=== PATIENT | female | born 1975 | race American Indian/Alaskan Native ===

== ENCOUNTER 2018-07-04 14:57 | Emergency (ER) | payer OTHER ==
--- NOTE | 2018-07-04 16:26 | Emergency Department Report ---
Blank Doc - Documentation Documentation: 43 y o female presents with cc of back pain x 3 days denies injury, fall or trauma ambulates well ua, ACC evaluate
[2018-07-04] MEDS ORDERED: TORADOL IM ONE (19:20)
[2018-07-04 19:49] LABS: Bacteria,Urine 1+ /HPF (Negative); Bilirubin,Urine NEG (Negative); Blood,Urine MOD (Negative); Color,Urine Amber (Yellow); Mucus,Urine 3+ /HPF
--- NOTE | 2018-07-04 20:00 | Emergency Department Report ---
ED Back Pain/Injury HPI - General Chief Complaint: Back Pain/Injury Stated Complaint: SHOOTING BACK PAIN Time Seen by Provider: 07/04/18 16:21 Source: patient Limitations: No Limitations - History of Present Illness Initial Comments: pt is s 43 y/o aaf who presents for rigiht side low back pain described as spasm x 3 days witch secondary complaint of urinary urgency and stinging there is no fever no chilll no n/v no hematuria no vaginal discharge Complaint: back pain Onset/Timin -: days(s) Similar Symptoms Previously: Yes Place: home Radiation: none Severity: moderate Severity scale (0 -10): 4 Quality: other (spasm) Consistency: intermittent Improves With: none Worsens With: other (voiding) - Related Data Previous Rx's Medication Instructions Recorded Last Taken Type Acetaminophen [Acetaminophen TAB] 650 mg PO Q4H PRN tablet 04/07/18 Unknown Rx Apixaban [Eliquis] 5 mg PO BID #60 tablet 04/07/18 Unknown Rx Apixaban [Eliquis] 10 mg PO BID #14 tablet 04/07/18 Unknown Rx Aspirin [Aspirin BABY CHEW TAB] 81 mg PO QDAY #30 tab.chew 04/07/18 Unknown Rx AtorvaSTATin [Lipitor] 40 mg PO QHS #30 tablet 04/07/18 Unknown Rx Benztropine [Cogentin] 0.5 mg PO DAILY #30 tablet 04/07/18 Unknown Rx HYDROcodone/APAP 5-325 [[place] 1 each PO Q4H PRN #10 tablet 04/07/18 Unknown Rx 5-325 mg TAB] Losartan [Cozaar] 100 mg PO QDAY #30 tablet 04/07/18 Unknown Rx Metoprolol Xl [Metoprolol 100 mg PO QDAY #30 tablet 04/07/18 Unknown Rx SUCCINATE ER TAB] Nicotine [Habitrol] 14 mg TD QDAY #30 patch 04/07/18 Unknown Rx Zolpidem [Ambien] 5 mg PO QHS PRN #10 tablet 04/07/18 Unknown Rx metFORMIN 500 mg PO DAILY #30 04/07/18 Unknown Rx risperiDONE [RisperDAL] 2 mg PO DAILY #30 tablet 04/07/18 Unknown Rx traZODone [Desyrel] 50 mg PO QHS #30 tablet 04/07/18 Unknown Rx Nitrofurantoin Monohyd/M-Cryst 100 mg PO BID 7 Days #14 capsule 07/04/18 Unknown Rx [Macrobid 100 mg Capsule] Allergies Allergy/AdvReac Type Severity Reaction Status Date / Time No Known Allergies Allergy Verified 07/04/18 16:20 ED Review of Systems ROS: Stated complaint: SHOOTING BACK PAIN Other details as noted in HPI Constitutional: denies: chills, fever Eyes: denies: eye pain, eye discharge, vision change ENT: denies: ear pain, throat pain Respiratory: denies: cough, shortness of breath, wheezing Cardiovascular: denies: chest pain, palpitations Endocrine: no symptoms reported Gastrointestinal: denies: abdominal pain, nausea, diarrhea Genitourinary: urgency, dysuria, frequency. denies: hematuria, discharge, abnormal menses, dyspareunia Musculoskeletal: denies: back pain, joint swelling, arthralgia Skin: denies: rash, lesions Neurological: denies: headache, weakness, paresthesias Psychiatric: denies: anxiety, depression Hematological/Lymphatic: denies: easy bleeding, easy bruising ED Past Medical Hx - Past Medical History Hx Hypertension: Yes Hx Heart Attack/AMI: Yes Hx Psychiatric Treatment: Yes Hx COPD: No (Patient states that she has not been dx with COPD) Additional medical history: Schizophrenia, CAD - Surgical History Additional Surgical History: Coronary stents - Social History Smoking Status: Current Every Day Smoker Substance Use Type: Alcohol - Medications Home Medications: Home Medications Medication Instructions Recorded Confirmed Last Taken Type Acetaminophen [Acetaminophen TAB] 650 mg PO Q4H PRN tablet 04/07/18 Unknown Rx Apixaban [Eliquis] 5 mg PO BID #60 tablet 04/07/18 Unknown Rx Apixaban [Eliquis] 10 mg PO BID #14 tablet 04/07/18 Unknown Rx Aspirin [Aspirin BABY CHEW TAB] 81 mg PO QDAY #30 tab.chew 04/07/18 Unknown Rx AtorvaSTATin [Lipitor] 40 mg PO QHS #30 tablet 04/07/18 Unknown Rx Benztropine [Cogentin] 0.5 mg PO DAILY #30 tablet 04/07/18 Unknown Rx HYDROcodone/APAP 5-325 [[place] 1 each PO Q4H PRN #10 tablet 04/07/18 Unknown Rx 5-325 mg TAB] Losartan [Cozaar] 100 mg PO QDAY #30 tablet 04/07/18 Unknown Rx Metoprolol Xl [Metoprolol 100 mg PO QDAY #30 tablet 04/07/18 Unknown Rx SUCCINATE ER TAB] Nicotine [Habitrol] 14 mg TD QDAY #30 patch 04/07/18 Unknown Rx Zolpidem [Ambien] 5 mg PO QHS PRN #10 tablet 04/07/18 Unknown Rx metFORMIN 500 mg PO DAILY #30 04/07/18 Unknown Rx risperiDONE [RisperDAL] 2 mg PO DAILY #30 tablet 04/07/18 Unknown Rx traZODone [Desyrel] 50 mg PO QHS #30 tablet 04/07/18 Unknown Rx Nitrofurantoin Monohyd/M-Cryst 100 mg PO BID 7 Days #14 capsule 07/04/18 Unknown Rx [Macrobid 100 mg Capsule] ED Physical Exam - General Limitations: No Limitations General appearance: alert, in no apparent distress - Head Head exam: Present: atraumatic, normocephalic - Eye Eye exam: Present: normal appearance - ENT ENT exam: Present: mucous membranes moist - Neck Neck exam: Present: normal inspection - Respiratory Respiratory exam: Present: normal lung sounds bilaterally. Absent: respiratory distress - Cardiovascular Cardiovascular Exam: Present: regular rate, normal rhythm, normal heart sounds. Absent: systolic murmur, diastolic murmur, rubs, gallop - GI/Abdominal GI/Abdominal exam: Present: soft, normal bowel sounds. Absent: distended, tenderness, rebound, rigid, bruit, hernia - Rectal Rectal exam: Present: deferred - Extremities Exam Extremities exam: Present: normal inspection, full ROM, normal capillary refill. Absent: tenderness - Back Exam Back exam: Present: normal inspection, full ROM. Absent: tenderness, CVA tenderness (R), CVA tenderness (L), muscle spasm, paraspinal tenderness, rash noted - Neurological Exam Neurological exam: Present: alert, oriented X3, CN II-XII intact, normal gait, reflexes normal - Psychiatric Psychiatric exam: Present: normal affect, normal mood - Skin Skin exam: Present: warm, dry, intact, normal color. Absent: rash ED Course Vital Signs 07/04/18 07/04/18 16:20 19:27 Temperature 97.8 F Pulse Rate 111 H Respiratory 20 18 Rate Blood Pressure 164/105 O2 Sat by Pulse 99 Oximetry ED Medical Decision Making - Lab Data Labs 07/04/18 19:20 Urine Color Veronica Urine Turbidity Slightly-cloudy Urine pH 6.0 Ur Specific [place] 1.027 Urine Protein 30 mg/dl Urine Glucose (UA) Neg Urine Ketones Neg Urine Blood Mod Urine Nitrite Neg Urine Bilirubin Neg Urine Urobilinogen 2.0 Ur Leukocyte Esterase Neg Urine WBC (Auto) 3.0 Urine RBC (Auto) 2.0 U Epithel Cells (Auto) 5.0 Urine Bacteria (Auto) 1+ Urine Mucus 3+ - Medical Decision Making th is a Uti plan: macrobid follow up with pcp in 2-3 days , pt is currently tolerating po intake without nuasea or vomitng, will self hydrate at home pt has not take bp medicaitons today will take upon arrival to [facility], [place], there is no headacch no dizziness no lightheadedness no cp no sob, pt verbalized ageement and understanding of same. Critical care attestation.: If time is entered above; I have spent that time in minutes in the direct care of this critically ill patient, excluding procedure time. ED Disposition Clinical Impression: UTI (urinary tract infection) Qualifiers: Urinary tract infection type: acute cystitis Hematuria presence: without hematuria Qualified Code(s): N30.00 - Acute cystitis without hematuria Disposition: DC-01 TO HOME OR SELFCARE Is pt being admited?: No Does the pt Need Aspirin: No Condition: Stable Instructions: Urinary Tract Infection in Women (ED) Prescriptions: Nitrofurantoin Monohyd/M-Cryst [Macrobid 100 mg Capsule] 100 mg PO BID 7 Days #14 capsule Referrals: DEVI HARRIS MD [Primary Care Provider] - 3-5 Days Forms: Work/School Release Form(ED) Time of Disposition: 20:03
[2018-07-04 20:09] VITALS: BP 167/99
== END 2018-07-04 20:09 | disposition home or self-care (01) ==
LOC: ED 14:57
DX: N30.00 Acute cystitis without hematuria (principal); I10 Essential (primary) hypertension; I25.2 Old myocardial infarction; F20.9 Schizophrenia, unspecified; I25.10 Atherosclerotic heart disease of native coronary artery without angina pectoris; F17.200 Nicotine dependence, unspecified, uncomplicated
CPT/HCPCS: 81001; 96372; 99283; J1885

== ENCOUNTER 2018-08-29 13:45 | Inpatient (IN) | payer SELFPAY ==
[2018-08-29 15:12] LABS: Basophils % (Auto) 0.7 % (0.0-1.8); Eosinophils # (Auto) 0.1 K/mm3 (0.0-0.4); Eosinophils % (Auto) 2.1 % (0.0-4.3); Hematocrit 35.5 % (30.3-42.9); Hemoglobin 11.2 gm/dl (10.1-14.3); Lymphocytes % (Auto) 17.4 % (13.4-35.0); Mean Corpuscular HGB Conc 32 % (30-34); Mean Corpuscular Volume 88 fl (79-97); Monocytes # (Auto) 0.7 K/mm3 (0.0-0.8); Monocytes % (Auto) 11.1 % (0.0-7.3); Platelet Count 262 K/mm3 (140-440); Red Blood Count 4.04 M/mm3 (3.65-5.03)
[2018-08-29 15:19] LABS: INR 0.95 (0.87-1.13)
[2018-08-29 15:20] LABS: Partial Thromboplastin Time 27.1 Sec. (24.2-36.6)
[2018-08-29 15:27] LABS: Red Cell Distribution Width 23.5 % (13.2-15.2)
[2018-08-29 15:30] LABS: Alanine Aminotransferase 61 units/L (7-56); Albumin 3.4 g/dL (3.9-5); BUN/Creatinine Ratio 7; Blood Urea Nitrogen 4 mg/dL (7-17); Calcium 8.1 mg/dL (8.4-10.2); Hemolysis Index 0
[2018-08-29] MEDS ORDERED: HEPARIN 10,000 UNITS/10 ML IV ONE ×2 (18:02)
--- NOTE | 2018-08-29 18:12 | Consultation ---
History of Present Illness - Reason for Consult Consult date: 08/29/18 ischemic right leg Requesting physician: ANALIA ROE - History of Present Illness Patient known to our service. SP aortoiliac thrombectomy in Mar 2018. Ran out of Eliquis in April and stopped taking it. Hx of severe aortic disease. Now has right foot pain for 4 days. CO pain at forefoot and some numbness in toes. Continues to smoke. Past History Past Surgical History: Other (aortic thrombectomy) Medications and Allergies Allergies Allergy/AdvReac Type Severity Reaction Status Date / Time No Known Allergies Allergy Verified 07/04/18 16:20 Home Medications Medication Instructions Recorded Confirmed Last Taken Type Aspirin [Aspirin BABY CHEW TAB] 81 mg PO QDAY #30 tab.chew 04/07/18 08/29/18 Unknown Rx AtorvaSTATin [Lipitor] 40 mg PO QHS #30 tablet 04/07/18 08/29/18 Unknown Rx Benztropine [Cogentin] 0.5 mg PO DAILY #30 tablet 04/07/18 08/29/18 Unknown Rx HYDROcodone/APAP 5-325 [[place] 1 each PO Q4H PRN #10 tablet 04/07/18 08/29/18 Unknown Rx 5-325 mg TAB] Losartan [Cozaar] 100 mg PO QDAY #30 tablet 04/07/18 08/29/18 Unknown Rx Metoprolol Xl [Metoprolol 100 mg PO QDAY #30 tablet 04/07/18 08/29/18 Unknown Rx SUCCINATE ER TAB] Nicotine [Habitrol] 14 mg TD QDAY #30 patch 04/07/18 08/29/18 Unknown Rx Zolpidem [Ambien] 5 mg PO QHS PRN #10 tablet 04/07/18 08/29/18 Unknown Rx risperiDONE [RisperDAL] 2 mg PO DAILY #30 tablet 04/07/18 08/29/18 Unknown Rx traZODone [Desyrel] 50 mg PO QHS #30 tablet 04/07/18 08/29/18 Unknown Rx Exam - Constitutional Vitals: Temp Pulse Resp BP Pulse Ox 117 H 18 136/72 96 08/29/18 17:01 08/29/18 17:01 08/29/18 15:01 08/29/18 17:01 General appearance: Present: mild distress - EENT Eyes: Present: PERRL ENT: hearing intact, clear oral mucosa - Neck Neck: Present: supple, normal ROM - Respiratory Respiratory effort: normal - Cardiovascular Heart Sounds: Present: S1 & S2. Absent: rub, click - Extremities Extremity abnormal: other (left leg WNL with 2+ DP pulse, RLE warm with good distal cap refill on toes. diminihsed doppler signals at right ankle.) Peripheral Pulses: abnormal (absent pedal pulses right, cannot feel either femoral pulse despite 2+ left DP) - Integumentary Integumentary: Present: clear, warm, dry - Musculoskeletal Musculoskeletal: gait normal, strength equal bilaterally - Psychiatric Psychiatric: appropriate mood/affect, intact judgment & insight - Neurologic Neurologic: CNII-XII intact, moves all extremities Results - Labs CBC & Chem 7: 08/29/18 14:47 08/30/18 11:32 Labs: Abnormal lab results 08/29/18 08/29/18 Range/Units 14:47 14:47 RDW 23.5 H (13.2-15.2) % [place] % (Auto) 11.1 H (0.0-7.3) % Lymph # 1.0 L (1.2-5.4) K/mm3 Potassium 3.0 L (3.6-5.0) mmol/L BUN 4 L (7-17) mg/dL Creatinine 0.6 L (0.7-1.2) mg/dL Glucose 141 H (65-100) mg/dL Calcium 8.1 L (8.4-10.2) mg/dL AST 60 H (5-40) units/L ALT 61 H (7-56) units/L Albumin 3.4 L (3.9-5) g/dL Assessment and Plan - Patient Problems (1) Arterial occlusion, lower extremity Status: Acute Plan to address problem: Noninvasive studies not completed yet. 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 Patient has not been compliant with anticoagulation therapy. Foot is viable. Sx have been present for several days. Patient has complicated aortic disease. Recommend heparin gtt. Recommend CTA. Intervention possible but extent of disease is important to know prior to any revascularization attempt given previous history.
--- NOTE | 2018-08-29 18:36 | Emergency Department Report ---
ED General Adult HPI - General Chief complaint: Extremity Injury, Lower Stated complaint: CLOT IN R LEG/PAIN IN R FOOT Time Seen by Provider: 08/29/18 14:02 Source: patient Mode of arrival: Wheelchair Limitations: No Limitations - History of Present Illness Initial comments: Patient presents to the emergency department with chief complaint of right foot and leg pain. The patient states she has a recent history of having clots in her leg and has surgery to remove them just prior to . Patient states she took his first 30 days but did not continue it due to funding issues. Patient not shortness breath or chest pain. -: Sudden Location: lower extremity Radiation: non-radiation Severity scale (0 -10): 5 Quality: aching Consistency: constant Improves with: none Worsens with: none Associated Symptoms: denies other symptoms Treatments Prior to Arrival: none - Related Data Previous Rx's Medication Instructions Recorded Last Taken Type Apixaban [Eliquis] 5 mg PO BID #60 tablet 04/07/18 Unknown Rx Aspirin [Aspirin BABY CHEW TAB] 81 mg PO QDAY #30 tab.chew 04/07/18 Unknown Rx AtorvaSTATin [Lipitor] 40 mg PO QHS #30 tablet 04/07/18 Unknown Rx Benztropine [Cogentin] 0.5 mg PO DAILY #30 tablet 04/07/18 Unknown Rx HYDROcodone/APAP 5-325 [[place] 1 each PO Q4H PRN #10 tablet 04/07/18 Unknown Rx 5-325 mg TAB] Losartan [Cozaar] 100 mg PO QDAY #30 tablet 04/07/18 Unknown Rx Metoprolol Xl [Metoprolol 100 mg PO QDAY #30 tablet 04/07/18 Unknown Rx SUCCINATE ER TAB] Nicotine [Habitrol] 14 mg TD QDAY #30 patch 04/07/18 Unknown Rx Zolpidem [Ambien] 5 mg PO QHS PRN #10 tablet 04/07/18 Unknown Rx metFORMIN 500 mg PO DAILY #30 04/07/18 Unknown Rx risperiDONE [RisperDAL] 2 mg PO DAILY #30 tablet 04/07/18 Unknown Rx traZODone [Desyrel] 50 mg PO QHS #30 tablet 04/07/18 Unknown Rx Allergies Allergy/AdvReac Type Severity Reaction Status Date / Time No Known Allergies Allergy Verified 07/04/18 16:20 ED Review of Systems ROS: Stated complaint: CLOT IN R LEG/PAIN IN R FOOT Other details as noted in HPI Constitutional: denies: chills, fever Eyes: denies: eye pain, eye discharge, vision change ENT: denies: ear pain, throat pain Respiratory: denies: cough, shortness of breath, wheezing Cardiovascular: denies: chest pain, palpitations Endocrine: no symptoms reported Gastrointestinal: denies: abdominal pain, nausea, diarrhea Genitourinary: denies: urgency, dysuria, discharge Musculoskeletal: denies: back pain, joint swelling, arthralgia Skin: denies: rash, lesions Neurological: denies: headache, weakness, paresthesias Psychiatric: denies: anxiety, depression Hematological/Lymphatic: denies: easy bleeding, easy bruising ED Past Medical Hx - Past Medical History Previous Medical History?: Yes Hx Hypertension: Yes Hx Heart Attack/AMI: Yes (with stent placement) Hx Deep Vein Thrombosis: Yes Hx Psychiatric Treatment: Yes Hx COPD: No (Patient states that she has not been dx with COPD) Additional medical history: Schizophrenia, CAD - Surgical History Past Surgical History?: Yes Additional Surgical History: Coronary stents - Social History Smoking Status: Current Every Day Smoker Substance Use Type: Alcohol - Medications Home Medications: Home Medications Medication Instructions Recorded Confirmed Last Taken Type Apixaban [Eliquis] 5 mg PO BID #60 tablet 04/07/18 08/29/18 Unknown Rx Aspirin [Aspirin BABY CHEW TAB] 81 mg PO QDAY #30 tab.chew 04/07/18 08/29/18 Unknown Rx AtorvaSTATin [Lipitor] 40 mg PO QHS #30 tablet 04/07/18 08/29/18 Unknown Rx Benztropine [Cogentin] 0.5 mg PO DAILY #30 tablet 04/07/18 08/29/18 Unknown Rx HYDROcodone/APAP 5-325 [[place] 1 each PO Q4H PRN #10 tablet 04/07/18 08/29/18 Unknown Rx 5-325 mg TAB] Losartan [Cozaar] 100 mg PO QDAY #30 tablet 04/07/18 08/29/18 Unknown Rx Metoprolol Xl [Metoprolol 100 mg PO QDAY #30 tablet 04/07/18 08/29/18 Unknown Rx SUCCINATE ER TAB] Nicotine [Habitrol] 14 mg TD QDAY #30 patch 04/07/18 08/29/18 Unknown Rx Zolpidem [Ambien] 5 mg PO QHS PRN #10 tablet 04/07/18 08/29/18 Unknown Rx metFORMIN 500 mg PO DAILY #30 04/07/18 08/29/18 Unknown Rx risperiDONE [RisperDAL] 2 mg PO DAILY #30 tablet 04/07/18 08/29/18 Unknown Rx traZODone [Desyrel] 50 mg PO QHS #30 tablet 04/07/18 08/29/18 Unknown Rx ED Physical Exam - General Limitations: No Limitations General appearance: alert, in no apparent distress - Head Head exam: Present: atraumatic, normocephalic - Eye Eye exam: Present: normal appearance, PERRL, EOMI - ENT ENT exam: Present: mucous membranes moist - Neck Neck exam: Present: normal inspection - Respiratory Respiratory exam: Present: normal lung sounds bilaterally. Absent: respiratory distress - Cardiovascular Cardiovascular Exam: Present: regular rate, normal rhythm. Absent: systolic murmur, diastolic murmur, rubs, gallop - GI/Abdominal GI/Abdominal exam: Present: soft, normal bowel sounds. Absent: distended, tenderness - Extremities Exam Extremities exam: Present: other (she has lingering Refill of the digits of the right foot with diminished dorsalis pedis and posterior tibialis pulses) - Back Exam Back exam: Present: normal inspection - Neurological Exam Neurological exam: Present: alert, oriented X3, CN II-XII intact. Absent: motor sensory deficit - Psychiatric Psychiatric exam: Present: normal affect, normal mood - Skin Skin exam: Present: warm, dry, intact, normal color. Absent: rash ED Course Vital Signs 08/29/18 08/29/18 08/29/18 14:06 14:31 15:01 Pulse Rate 112 H 108 H Respiratory 18 28 H Rate Blood Pressure 140/105 136/72 O2 Sat by Pulse 98 96 94 Oximetry 08/29/18 08/29/18 15:31 17:01 Pulse Rate 105 H 117 H Respiratory 17 18 Rate Blood Pressure O2 Sat by Pulse 99 96 Oximetry ED Medical Decision Making - Lab Data Result diagrams: 08/29/18 14:47 08/29/18 14:47 Lab Results 08/29/18 08/29/18 08/29/18 Range/Units 14:47 14:47 14:47 WBC 5.9 (4.5-11.0) K/mm3 RBC 4.04 (3.65-5.03) M/mm3 Hgb 11.2 (10.1-14.3) gm/dl Hct 35.5 (30.3-42.9) % MCV 88 (79-97) fl MCH 28 (28-32) pg MCHC 32 (30-34) % RDW 23.5 H (13.2-15.2) % Plt Count 262 (140-440) K/mm3 Lymph % (Auto) 17.4 (13.4-35.0) % [place] % (Auto) 11.1 H (0.0-7.3) % Eos % (Auto) 2.1 (0.0-4.3) % Baso % (Auto) 0.7 (0.0-1.8) % Lymph # 1.0 L (1.2-5.4) K/mm3 [place] # 0.7 (0.0-0.8) K/mm3 Eos # 0.1 (0.0-0.4) K/mm3 Baso # 0.0 (0.0-0.1) K/mm3 Seg Neutrophils % 68.7 (40.0-70.0) % Seg Neutrophils # 4.1 (1.8-7.7) K/mm3 PT 13.3 (12.2-14.9) Sec. INR 0.95 (0.87-1.13) APTT 27.1 (24.2-36.6) Sec. Sodium 138 (137-145) mmol/L Potassium 3.0 L (3.6-5.0) mmol/L Chloride 99.2 (98-107) mmol/L Carbon Dioxide 23 (22-30) mmol/L Anion Gap 19 mmol/L BUN 4 L (7-17) mg/dL Creatinine 0.6 L (0.7-1.2) mg/dL Estimated GFR > 60 ml/min BUN/Creatinine Ratio 7 % Glucose 141 H (65-100) mg/dL Calcium 8.1 L (8.4-10.2) mg/dL Total Bilirubin 0.50 (0.1-1.2) mg/dL AST 60 H (5-40) units/L ALT 61 H (7-56) units/L Alkaline Phosphatase 101 (35-129) units/L Total Protein 7.1 (6.3-8.2) g/dL Albumin 3.4 L (3.9-5) g/dL Albumin/Globulin Ratio 0.9 % - Radiology Data Radiology results: report reviewed - Medical Decision Making Patient was seen by vascular surgery Heparin drip started Patient will be admitted Critical Care Time: Yes Critical care time in (mins) excluding proc time.: 35 Critical care attestation.: If time is entered above; I have spent that time in minutes in the direct care of this critically ill patient, excluding procedure time. ED Disposition Clinical Impression: Arterial occlusion, lower extremity Disposition: DC-09 OP ADMIT IP TO THIS HOSP Is pt being admited?: Yes Does the pt Need Aspirin: No Condition: Fair Referrals: [place] [Other] - 3-5 Days
--- NOTE | 2018-08-29 18:48 | Vascular Lab Report ---
PROCEDURE: VL ARTERIAL DUPLEX LE BILAT TECHNIQUE: Duplex Doppler ultrasound of either bilateral lower extremity arteries or arterial bypass grafts was performed with image documentation. HISTORY: pain/decreased blood flow/not on anticoag COMPARISONS: None . FINDINGS: Real-time ultrasound of the right leg and left leg was performed using grayscale and color Doppler images. These images demonstrate that peak systolic velocity in the right distal external iliac artery was 10 9 cm/s and monophasic; common femoral artery 90 cm/s and monophasic; proximal SFA 78 cm/s and monopha sic; mid SFA 46 cm/s and monophasic. The distal SFA is occluded. Peak systolic velocity in the deep f emoral artery was 68 cm/s and monophasic; popliteal 21 cm/s and monophasic; posterior tibial artery 7 cm/s and monophasic. The anterior tibial artery and the dorsalis pedis artery are were occluded. On the left, peak systolic velocity in the distal external iliac artery was 100 cm/s and triphasic; c ommon femoral artery 91 cm/s and triphasic; proximal SFA 104 cm/s and triphasic; mid superficial femo ral artery 126 cm/s and triphasic; distal superficial femoral artery 99 cm/s and triphasic; deep femo ral artery 76 cm/s and monophasic; popliteal artery 50 cm/s and biphasic; posterior tibial artery 50 cm/s biphasic; anterior tibial artery 59 cm/s biphasic; dorsalis pedis 41 cm/s biphasic. IMPRESSION: Occlusion of right distal superficial femoral artery, right anterior tibial artery and ri ght dorsalis pedis artery The left leg arterial vasculature appears patent This document is electronically signed by Amando Nguyen MD., Aug 29 2018 06:46:03 PM ET
[2018-08-29] MEDS: HEPARIN/ 0.45% NACL-25,000 UNIT/500 ML 25,000 UNIT/500 ML BAG IV SCH (19:01)
[2018-08-29] MEDS ORDERED: ZOFRAN IV PRN ×2 (21:23→21:30)
[2018-08-29] MEDS ORDERED: SODIUM CHLORIDE FLUSH SYRINGE 10 ML IV PRN (21:23)
[2018-08-29] MEDS ORDERED: MILK OF MAGNESIA PO PRN (21:23)
[2018-08-29] MEDS ORDERED: TYLENOL PO PRN (21:23)
--- NOTE | 2018-08-29 21:47 | History and Physical Report ---
<BRIAN RODRIGUEZ - Last Filed: 08/30/18 01:34> History of Present Illness Date of examination: 08/29/18 Date of admission: 08/29/2018 Chief complaint: Right leg and foot pain x 4 days History of present illness: * Pt is a 43 year old female with PMHx of DVT, hyperlipidimia, HTN, DM type 2, schyzophrenia, obesity who presents to the ER with c/o right foot, and leg pain for 4 days. Pt reports a recent history of DVT (03/2018) in her leg with thrombectomy for which she was started on Eliquis. Unsure if the pt is complient to the medications, she admits to take all medications daily but she says to the ER DR that she took his the medication the first 30 days but couldn't afford to buy them anymore. Patient states that the pain is confined to her right lower leg, she denies recent trauma or injury to the right leg, denies recent illness, denies chest pain, denies cough, denies SOB, denies fever, denies chills. Pt had a Doppler study in the ER which showed occlusion of right distal superficial femoral artery, right anterior tibial artery and right dorsalis pedis artery, pt was started in an heparin drip and admitted for further evaluation an treatment of DVT. Past History Past Medical History: diabetes, DVT, hypertension, hyperlipidemia Past Surgical History: No surgical history Social history: no significant social history Family history: no significant family history Medications and Allergies Allergies Allergy/AdvReac Type Severity Reaction Status Date / Time No Known Allergies Allergy Verified 07/04/18 16:20 Home Medications Medication Instructions Recorded Confirmed Last Taken Type Apixaban [Eliquis] 5 mg PO BID #60 tablet 04/07/18 08/29/18 Unknown Rx Aspirin [Aspirin BABY CHEW TAB] 81 mg PO QDAY #30 tab.chew 04/07/18 08/29/18 Unknown Rx AtorvaSTATin [Lipitor] 40 mg PO QHS #30 tablet 04/07/18 08/29/18 Unknown Rx Benztropine [Cogentin] 0.5 mg PO DAILY #30 tablet 04/07/18 08/29/18 Unknown Rx HYDROcodone/APAP 5-325 [[place] 1 each PO Q4H PRN #10 tablet 04/07/18 08/29/18 Unknown Rx 5-325 mg TAB] Losartan [Cozaar] 100 mg PO QDAY #30 tablet 04/07/18 08/29/18 Unknown Rx Metoprolol Xl [Metoprolol 100 mg PO QDAY #30 tablet 04/07/18 08/29/18 Unknown Rx SUCCINATE ER TAB] Nicotine [Habitrol] 14 mg TD QDAY #30 patch 04/07/18 08/29/18 Unknown Rx Zolpidem [Ambien] 5 mg PO QHS PRN #10 tablet 04/07/18 08/29/18 Unknown Rx metFORMIN 500 mg PO DAILY #30 04/07/18 08/29/18 Unknown Rx risperiDONE [RisperDAL] 2 mg PO DAILY #30 tablet 04/07/18 08/29/18 Unknown Rx traZODone [Desyrel] 50 mg PO QHS #30 tablet 04/07/18 08/29/18 Unknown Rx Active Meds: Active Medications Acetaminophen (Tylenol) 650 mg PO Q4H PRN PRN Reason: Pain MILD(1-3)/Fever >100.5/[place]OUCHER Heparin Sodium/Sodium Chloride (Heparin/ 0.45% Nacl-25,000 Unit/500 Ml) 25,000 unit in 500 mls @ 30 mls/hr IV TITR KAYLYN; Protocol Last Admin: 08/29/18 19:01 Dose: 15 units/kg/hr, 33.33 mls/hr Documented by: Magnesium Hydroxide (Milk Of Magnesia) 30 ml PO Q4H PRN PRN Reason: Constipation Ondansetron HCl (Zofran) 4 mg IV Q8H PRN PRN Reason: Nausea And Vomiting Ondansetron HCl (Zofran) 4 mg IV Q8H PRN PRN Reason: Nausea And Vomiting Oxycodone/Acetaminophen (Percocet 5/325) 1 tab PO Q6H PRN PRN Reason: Pain, Moderate (4-6) Senna (Senokot) 8.6 mg PO Q12HR KAYLYN Sodium Chloride (Sodium Chloride Flush Syringe 10 Ml) 10 ml IV BID KAYLYN Sodium Chloride (Sodium Chloride Flush Syringe 10 Ml) 10 ml IV PRN PRN PRN Reason: LINE FLUSH Review of Systems Musculoskeletal: other (right leg and foot tenderness, no redness) Psychiatric: anxiety, irritability Exam - Constitutional Vitals: Temp Pulse Resp BP Pulse Ox 89 11 L 134/91 98 08/29/18 20:30 08/29/18 20:30 08/29/18 20:30 08/29/18 20:30 General appearance: Present: no acute distress - EENT Eyes: Present: EOM intact ENT: hearing intact - Neck Neck: Present: supple, normal ROM - Respiratory Respiratory effort: normal Respiratory: bilateral: CTA - Cardiovascular Rhythm: regular Heart Sounds: Present: S1 & S2 - Extremities Extremities: no ischemia, No edema Peripheral Pulses: within normal limits - Abdominal General gastrointestinal: Present: non-tender, non-distended Female genitourinary: Present: deferred - Rectal Rectal Exam: deferred - Integumentary Integumentary: Present: warm, dry - Musculoskeletal Musculoskeletal: strength equal bilaterally - Psychiatric Psychiatric: cooperative - Neurologic Neurologic: moves all extremities Results - Labs CBC & Chem 7: 08/29/18 14:47 08/29/18 14:47 Labs: Laboratory Last Values WBC 5.9 K/mm3 (4.5-11.0) 08/29/18 14:47 RBC 4.04 M/mm3 (3.65-5.03) 08/29/18 14:47 Hgb 11.2 gm/dl (10.1-14.3) 08/29/18 14:47 Hct 35.5 % (30.3-42.9) 08/29/18 14:47 MCV 88 fl (79-97) 08/29/18 14:47 MCH 28 pg (28-32) 08/29/18 14:47 MCHC 32 % (30-34) 08/29/18 14:47 RDW 23.5 % (13.2-15.2) H 08/29/18 14:47 Plt Count 262 K/mm3 (140-440) 08/29/18 14:47 Lymph % (Auto) 17.4 % (13.4-35.0) 08/29/18 14:47 [place] % (Auto) 11.1 % (0.0-7.3) H 08/29/18 14:47 Eos % (Auto) 2.1 % (0.0-4.3) 08/29/18 14:47 Baso % (Auto) 0.7 % (0.0-1.8) 08/29/18 14:47 Lymph # 1.0 K/mm3 (1.2-5.4) L 08/29/18 14:47 [place] # 0.7 K/mm3 (0.0-0.8) 08/29/18 14:47 Eos # 0.1 K/mm3 (0.0-0.4) 08/29/18 14:47 Baso # 0.0 K/mm3 (0.0-0.1) 08/29/18 14:47 Seg Neutrophils % 68.7 % (40.0-70.0) 08/29/18 14:47 Seg Neutrophils # 4.1 K/mm3 (1.8-7.7) 08/29/18 14:47 PT 13.3 Sec. (12.2-14.9) 08/29/18 14:47 INR 0.95 (0.87-1.13) 08/29/18 14:47 APTT 27.1 Sec. (24.2-36.6) 08/29/18 14:47 Sodium 138 mmol/L (137-145) 08/29/18 14:47 Potassium 3.0 mmol/L (3.6-5.0) L 08/29/18 14:47 Chloride 99.2 mmol/L (98-107) 08/29/18 14:47 Carbon Dioxide 23 mmol/L (22-30) 08/29/18 14:47 19 mmol/L 08/29/18 14:47 BUN 4 mg/dL (7-17) L 08/29/18 14:47 0.6 mg/dL (0.7-1.2) L 08/29/18 14:47 Estimated GFR > 60 ml/min 08/29/18 14:47 7 % 08/29/18 14:47 Glucose 141 mg/dL (65-100) H 08/29/18 14:47 Calcium 8.1 mg/dL (8.4-10.2) L 08/29/18 14:47 0.50 mg/dL (0.1-1.2) 08/29/18 14:47 AST 60 units/L (5-40) H 08/29/18 14:47 ALT 61 units/L (7-56) H 08/29/18 14:47 101 units/L (35-129) 08/29/18 14:47 7.1 g/dL (6.3-8.2) 08/29/18 14:47 3.4 g/dL (3.9-5) L 08/29/18 14:47 0.9 % 08/29/18 14:47 Assessment and Plan Assessment and plan: 1. Recurrent DVT (worse and it took weeks) 2. Hyperlipidemia 3. Accelerated Hypertension 4. DM type 5. Schizophrenia 6. Obesity 7. Anxiety Plan: Patient is admitted for recurrent DVTs Started on heparin drip Continue home meds Glycemic management with insulin sliding scale Resume home meds [place] PRN for pain Patient may need hematology consult for recurrent DVT Further plan per hospital course Plan of care was discussed with patient's voiced understanding Patient's condition and plan of care discussed with Dr. Cazares Advance Directives: Yes VTE prophylaxis?: Chemical Plan of care discussed with patient/family: Yes <BALJIT CAZARES - Last Filed: 08/30/18 02:41> History of Present Illness Date of admission: 08/29/18 21:30 Medications and Allergies Active Meds: Active Medications Acetaminophen (Tylenol) 650 mg PO Q4H PRN PRN Reason: Pain MILD(1-3)/Fever >100.5/[place]CH[place] Acetaminophen/Hydrocodone Bitart ([place] 5/325) 1 each PO Q4H PRN PRN Reason: Pain, Moderate (4-6) Aspirin (Baby Aspirin) 81 mg PO QDAY [facility] Atorvastatin Calcium (Lipitor) 40 mg PO QHS [facility] Benztropine Mesylate (Cogentin) 0.5 mg PO DAILY [facility] Heparin Sodium/Sodium Chloride (Heparin/ 0.45% Nacl-25,000 Unit/500 Ml) 25,000 unit in 500 mls @ 30 mls/hr IV TITR KAYLYN; Protocol Last Titration: 08/30/18 02:17 Dose: 0 units/kg/hr, 0 mls/hr Documented by: Insulin Human Regular (Humulin R) 0 units SUB-Q ACHS [facility]; Protocol Last Admin: 08/29/18 22:15 Dose: Not Given Documented by: Losartan Potassium (Cozaar) 100 mg PO QDAY [facility] Magnesium Hydroxide (Milk Of Magnesia) 30 ml PO Q4H PRN PRN Reason: Constipation Metoprolol Succinate (Toprol Xl) 100 mg PO QDAY@0800 [facility] Ondansetron HCl (Zofran) 4 mg IV Q8H PRN PRN Reason: Nausea And Vomiting Oxycodone/Acetaminophen (Percocet 5/325) 1 tab PO Q6H PRN PRN Reason: Pain, Moderate (4-6) Risperidone (Risperdal) 2 mg PO DAILY [facility] Senna (Senokot) 8.6 mg PO Q12HR [facility] Last Admin: 08/29/18 22:02 Dose: 8.6 mg Documented by: Sodium Chloride (Sodium Chloride Flush Syringe 10 Ml) 10 ml IV BID [facility] Last Admin: 08/29/18 22:02 Dose: 10 ml Documented by: Sodium Chloride (Sodium Chloride Flush Syringe 10 Ml) 10 ml IV PRN PRN PRN Reason: LINE FLUSH Trazodone HCl (Desyrel) 50 mg PO QHS [facility] Exam - Constitutional Vitals: Temp Pulse Resp BP Pulse Ox 98.5 F 98 H 20 129/81 96 08/30/18 01:42 08/30/18 01:42 08/30/18 01:42 08/30/18 01:42 08/30/18 01:42 Results - Labs CBC & Chem 7: 08/29/18 14:47 08/29/18 14:47 Labs: Laboratory Last Values WBC 5.9 K/mm3 (4.5-11.0) 08/29/18 14:47 RBC 4.04 M/mm3 (3.65-5.03) 08/29/18 14:47 Hgb 11.2 gm/dl (10.1-14.3) 08/29/18 14:47 Hct 35.5 % (30.3-42.9) 08/29/18 14:47 MCV 88 fl (79-97) 08/29/18 14:47 MCH 28 pg (28-32) 08/29/18 14:47 MCHC 32 % (30-34) 08/29/18 14:47 RDW 23.5 % (13.2-15.2) H 08/29/18 14:47 Plt Count 262 K/mm3 (140-440) 08/29/18 14:47 Lymph % (Auto) 17.4 % (13.4-35.0) 08/29/18 14:47 [place] % (Auto) 11.1 % (0.0-7.3) H 08/29/18 14:47 Eos % (Auto) 2.1 % (0.0-4.3) 08/29/18 14:47 Baso % (Auto) 0.7 % (0.0-1.8) 08/29/18 14:47 Lymph # 1.0 K/mm3 (1.2-5.4) L 08/29/18 14:47 [place] # 0.7 K/mm3 (0.0-0.8) 08/29/18 14:47 Eos # 0.1 K/mm3 (0.0-0.4) 08/29/18 14:47 Baso # 0.0 K/mm3 (0.0-0.1) 08/29/18 14:47 Seg Neutrophils % 68.7 % (40.0-70.0) 08/29/18 14:47 Seg Neutrophils # 4.1 K/mm3 (1.8-7.7) 08/29/18 14:47 PT 13.3 Sec. (12.2-14.9) 08/29/18 14:47 INR 0.95 (0.87-1.13) 08/29/18 14:47 APTT 27.1 Sec. (24.2-36.6) 08/29/18 14:47 Heparin Anti-Xa Level 1.06 U.I./ml (0.3-0.7) H 08/30/18 01:15 Sodium 138 mmol/L (137-145) 08/29/18 14:47 Potassium 3.0 mmol/L (3.6-5.0) L 08/29/18 14:47 Chloride 99.2 mmol/L (98-107) 08/29/18 14:47 Carbon Dioxide 23 mmol/L (22-30) 08/29/18 14:47 19 mmol/L 08/29/18 14:47 BUN 4 mg/dL (7-17) L 08/29/18 14:47 0.6 mg/dL (0.7-1.2) L 08/29/18 14:47 Estimated GFR > 60 ml/min 08/29/18 14:47 7 % 08/29/18 14:47 Glucose 141 mg/dL (65-100) H 08/29/18 14:47 POC Glucose 100 (70-105) 08/29/18 22:17 Calcium 8.1 mg/dL (8.4-10.2) L 08/29/18 14:47 0.50 mg/dL (0.1-1.2) 08/29/18 14:47 AST 60 units/L (5-40) H 08/29/18 14:47 ALT 61 units/L (7-56) H 08/29/18 14:47 101 units/L (35-129) 08/29/18 14:47 7.1 g/dL (6.3-8.2) 08/29/18 14:47 3.4 g/dL (3.9-5) L 08/29/18 14:47 0.9 % 08/29/18 14:47 Assessment and Plan Assessment and plan: Patient seen and examined examined, as discussed with expectoration. 43 year old woman with history of hypertension, diabetes, schizophrenia, peripheral artery disease, status post Aorto-Iliac thromboembolectomy on the last admission was emergency room complaining of right leg pain 4 days which she describes as cyril p intermittent pain, every 3 minutes, pain going up and down her leg, intensity 6/10. She is not taking any anticoagulation since April, she ran out of her medicine. Also complaining of pain on the right posterior back into thoracic region for 1-1/[address] angiogram of the abdomen shows thrombosis in the coronary iliac artery, occlusion of the right distal superficial femoral artery, popliteal artery, anterior tibial and dorsalis pedis arteries Patient was seen by vascular in the emergency room, started on heparin drip. Also check VQ scan, rule out PE.
[2018-08-29] MEDS ORDERED: SODIUM CHLORIDE FLUSH SYRINGE 10 ML IV SCH (22:00)
[2018-08-29] MEDS: SENOKOT PO SCH (22:02)
[2018-08-29] MEDS: HumuLIN R SUB-Q SCH (22:15)
--- NOTE | 2018-08-29 22:26 | Cat Scan Report ---
PROCEDURE: CT ANGIO ABD/FEMORAL ABD AORTA HISTORY: ischemic right leg FINDINGS: Contrast enhanced CT angiography of the abdomen and pelvis and both lower extremity is was performed following the intravenous administration of iodinated contrast. Sagittal and coronal MIP re formatted images were generated. There is bibasilar dependent atelectasis. CT ABDOMEN: The abdominal aorta is normal in size. There is thrombus within the distal abdominal aorta which narr ows the lumen of the distal aorta, measuring with residual lumen of the abdominal aorta aorta measuri ng approximately 0.9 x 0.4 cm on axial image 84. The celiac axis, superior mesenteric artery and inferior mesenteric artery are all patent. There are single bilateral renal arteries which appear patent. There is marked fatty infiltration of the liver. No suspect focal hepatic lesion is seen. The spleen is normal in size. No focal pancreatic lesion is seen. The gallbladder is unremarkable. CTA PELVIS: Thrombus from the distal abdominal aorta extends in the proximal right common iliac artery, resulting in an estimated 90% stenosis of the origin of the right common iliac artery. Distally, the right com mon iliac artery appears widely patent. The external iliac, common femoral, and internal iliac arteri es appear widely patent. On the left, the common iliac artery is widely patent at its origin. There is thrombus in the distal aspect of the left common iliac artery, axial image 23, coronal image 80 resulting in an estimated 80 % stenosis. The left external iliac and internal iliac and common femoral arteries appear widely ford nt. There is a left uterine body leiomyoma, 5.9 x 4.6 cm. There is a normal appendix. There is no evidence of diverticulitis. The urinary bladder is within nor mal limits. CTA right leg: The right superficial femoral artery is patent proximally. There is occlusion of the SFA approximatel y 18 cm superior to the knee joint. Although flow was seen on the popliteal artery on Doppler ultraso und, the popliteal does not appear patent on CTA. There is reconstitution of a portion of the peronea l artery, axial image 390, approximately 20 cm superior to the ankle and the peroneal does appear to continue to the ankle. There is reconstitution of the posterior tibial artery approximately 22 cm sup erior to the ankle joint and the posterior tibial does give rise to a medial plantar arch. The anteri or tibial and dorsalis pedis appear occluded. On the left, the superficial femoral, popliteal, anterior tibial, posterior tibial and peroneal arter ies appear patent. There is a patent dorsalis pedis and a medial plantar arch. IMPRESSION: CTA ABDOMEN: Thrombus within distal abdominal aorta resulting in luminal narrowing of the distal abdo rodrigue aorta CTA PELVIS: Thrombus within right common iliac artery at origin and thrombus within distal left commo n iliac artery resulting in bilateral hemodynamically significant stenoses CTA right leg: Occlusion of right distal superficial femoral artery, popliteal artery, anterior tibia l artery and dorsalis pedis artery. There is reconstitution of the peroneal and posterior tibial suzanne loki in the [place] CTA left leg: The left leg arterial vasculature appears patent This document is electronically signed by Amando Nguyen MD., Aug 29 2018 10:24:34 PM ET
[2018-08-30] MEDS ORDERED: NORCO 5/325 PO PRN (01:29)
[2018-08-30] MEDS: PERCOCET 5/325 PO PRN ×2 (02:54→08:34)
[2018-08-30] MEDS ORDERED: TOPROL XL PO SCH (08:00)
[2018-08-30] MEDS: HumuLIN R SUB-Q SCH ×2 (08:58→13:14)
[2018-08-30] MEDS ORDERED: COGENTIN PO SCH (10:00)
[2018-08-30] MEDS ORDERED: COZAAR PO SCH (10:00)
[2018-08-30] MEDS ORDERED: RisperDAL PO SCH (10:00)
[2018-08-30] MEDS ORDERED: BABY ASPIRIN PO SCH (10:00)
[2018-08-30] MEDS ORDERED: K-DUR PO ONE ×2 (11:00→12:00)
--- NOTE | 2018-08-30 11:50 | Progress Note ---
Assessment and Plan - Patient Problems (1) Aortic thrombus Onset Date: ~08/26/18 Current Visit: Yes Status: Acute Plan to address problem: I am concerned that she has an underlying hypercoagulable state and a nidus for thrombus formation in her distal aorta that is not easily seen with intraoperative aortogram. This does not seem like an embolic event but rather a repeat thrombotic event (patient was unable to afford her anticoagulant and did not follow up with us). A simple repeat thrombectomy would restore blood flow but not potentially treat the underlying process and I believe she might be best served by placement of a aortic endograft possibly Endologix. This would effectively exclude any thrombogenic surface in the distal aorta and protected from recurrent thrombus with and without anticoagulant. A thorough hematologic evaluation may be appropriate especially in light of the recent night sweats which may indicate some other type of underlying disease process. The surgical treatment of this process does require operative management. I'm currently assessing whether we have the capability of proceeding with that treatment protocol on the weekend with the call team. If I'm not comfortable that they have the surgical skills necessary I will consider transfer to a larger institution where his capabilities exist. (2) Ischemia of right lower extremity Onset Date: ~08/26/18 Current Visit: Yes Status: Acute Plan to address problem: Thrombectomy of the distal SFA may be necessary which would be coupled with the restorationism of blood flow to the iliacs. She remain on anticoagulation for the time being and will be npo. Subjective Date of service: 08/30/18 Interval history: Patient complains of continued right foot pain. She had a duplex scan of the lower extremities last night showing significant compromise of blood flow to her right leg and foot. CTA done early this morning showed recurrent distal aortic thrombosis involving the orifice mostly of the right common iliac but a little on the left and some decreased flow with probable thrombus of the distal superficial femoral artery above a chronically occluded right popliteal artery. She states that the foot hurts when she places weight on it. She thinks she has slightly decreased toe movement compared to 2 days ago. She has also had 2 mon ths of right chest wall discomfort. This prompted a lung scan done today which on preliminary assessment is normal. She is also complaining of night sweats over the last several months. Objective - Exam Narrative Exam: Continued right forefoot ischemia with tenderness more or less unchanged from our initial assessment. No palpable pulses in the right lower extremity. She has a palpable DP on the left. CTA shows recurrent thrombus in the distal aorta with occlusion of the origin of the right common iliac and some compromise of the origin on the left. New thrombus in the distal SFA on the right. - Constitutional Vitals: Vital Signs - 12hr 08/30/18 08/30/18 08/30/18 00:00 00:30 01:16 Temperature Pulse Rate 97 H Respiratory Rate Respiratory Rate [Right Foot] Blood Pressure 122/78 112/82 O2 Sat by Pulse 95 95 Oximetry 08/30/18 08/30/18 08/30/18 01:26 01:42 02:54 Temperature 98.5 F Pulse Rate 98 H Respiratory 20 20 20 Rate Respiratory Rate [Right Foot] Blood Pressure 129/81 O2 Sat by Pulse 96 96 Oximetry 08/30/18 08/30/18 08/30/18 03:09 03:54 04:05 Temperature 98.4 F Pulse Rate 88 Respiratory 18 18 Rate Respiratory 20 Rate [Right Foot] Blood Pressure 127/66 O2 Sat by Pulse 95 Oximetry 08/30/18 08/30/18 08/30/18 08:09 08:33 08:34 Temperature 98.4 F Pulse Rate 102 H 91 H Respiratory 20 22 Rate Respiratory Rate [Right Foot] Blood Pressure 132/95 O2 Sat by Pulse 91 Oximetry 08/30/18 10:00 Temperature Pulse Rate 81 Respiratory 20 Rate Respiratory Rate [Right Foot] Blood Pressure O2 Sat by Pulse 98 Oximetry - Labs CBC & Chem 7: 08/29/18 14:47 08/29/18 14:47 Labs: Abnormal lab results 08/29/18 08/29/18 08/30/18 Range/Units 14:47 14:47 01:15 RDW 23.5 H (13.2-15.2) % [place] % (Auto) 11.1 H (0.0-7.3) % Lymph # 1.0 L (1.2-5.4) K/mm3 Heparin Anti-Xa Level 1.06 H (0.3-0.7) U.I./ml Potassium 3.0 L (3.6-5.0) mmol/L BUN 4 L (7-17) mg/dL Creatinine 0.6 L (0.7-1.2) mg/dL Glucose 141 H (65-100) mg/dL POC Glucose (70-105) Calcium 8.1 L (8.4-10.2) mg/dL AST 60 H (5-40) units/L ALT 61 H (7-56) units/L Albumin 3.4 L (3.9-5) g/dL 08/30/18 Range/Units 08:57 RDW (13.2-15.2) % [place] % (Auto) (0.0-7.3) % Lymph # (1.2-5.4) K/mm3 Heparin Anti-Xa Level (0.3-0.7) U.I./ml Potassium (3.6-5.0) mmol/L BUN (7-17) mg/dL Creatinine (0.7-1.2) mg/dL Glucose (65-100) mg/dL POC Glucose 153 H (70-105) Calcium (8.4-10.2) mg/dL AST (5-40) units/L ALT (7-56) units/L Albumin (3.9-5) g/dL Medications & Allergies - Medications Allergies/Adverse Reactions: Allergies No Known Allergies Allergy (Verified 07/04/18 16:20) Home Medications: Home Medications Medication Instructions Recorded Confirmed Last Taken Type Apixaban [Eliquis] 5 mg PO BID #60 tablet 04/07/18 08/29/18 Unknown Rx Aspirin [Aspirin BABY CHEW TAB] 81 mg PO QDAY #30 tab.chew 04/07/18 08/29/18 Unknown Rx AtorvaSTATin [Lipitor] 40 mg PO QHS #30 tablet 04/07/18 08/29/18 Unknown Rx Benztropine [Cogentin] 0.5 mg PO DAILY #30 tablet 04/07/18 08/29/18 Unknown Rx HYDROcodone/APAP 5-325 [[place] 1 each PO Q4H PRN #10 tablet 04/07/18 08/29/18 U nknown Rx 5-325 mg TAB] Losartan [Cozaar] 100 mg PO QDAY #30 tablet 04/07/18 08/29/18 Unknown Rx Metoprolol Xl [Metoprolol 100 mg PO QDAY #30 tablet 04/07/18 08/29/18 Unknown Rx SUCCINATE ER TAB] Nicotine [Habitrol] 14 mg TD QDAY #30 patch 04/07/18 08/29/18 Unknown Rx Zolpidem [Ambien] 5 mg PO QHS PRN #10 tablet 04/07/18 08/29/18 Unknown Rx metFORMIN 500 mg PO DAILY #30 04/07/18 08/29/18 Unknown Rx risperiDONE [RisperDAL] 2 mg PO DAILY #30 tablet 04/07/18 08/29/18 Unknown Rx traZODone [Desyrel] 50 mg PO QHS #30 tablet 04/07/18 08/29/18 Unknown Rx Active Medications: Generic Name Dose Route Start Last Admin Trade Name Freq PRN Reason Stop Dose Admin Acetaminophen 650 mg 08/29/18 21:23 Tylenol PO Q4H PRN Pain MILD(1-3)/Fever >100.5/BOUCHER Acetaminophen/Hydrocodone Bitart 1 each 08/30/18 01:29 [place] 5/325 PO Q4H PRN Pain, Moderate (4-6) Aspirin 81 mg 08/30/18 10:00 Baby Aspirin PO QDAY [facility] Atorvastatin Calcium 40 mg 08/30/18 22:00 Lipitor PO QHS [facility] Benztropine Mesylate 0.5 mg 08/30/18 10:00 Cogentin PO DAILY [facility] Heparin Sodium/Sodium Chloride 25,000 unit in 500 mls @ 30 mls/hr 08/29/18 19:00 08/30/18 04:55 Heparin/ 0.45% Nacl-25,000 Unit/500 Ml IV 12.95 units/kg/hr TITR KAYLYN 30 mls/hr Titration Protocol 1,500 UNITS/HR Insulin Human Regular 0 units 08/29/18 22:00 08/29/18 22:15 Humulin R SUB-Q Not Given ACHS [facility] Protocol Losartan Potassium 100 mg 08/30/18 10:00 Cozaar PO QDAY KAYLYN Magnesium Hydroxide 30 ml 08/29/18 21:23 Milk Of Magnesia PO Q4H PRN Constipation Metoprolol Succinate 100 mg 08/30/18 08:00 08/30/18 08:33 Toprol Xl PO 100 mg QDAY@0800 [facility] Administration Ondansetron HCl 4 mg 08/29/18 21:30 08/30/18 02:55 Zofran IV 4 mg Q8H PRN Administration Nausea And Vomiting Oxycodone/Acetaminophen 1 tab 08/29/18 21:23 08/30/18 08:34 Percocet 5/325 PO 1 tab Q6H PRN Administration Pain, Moderate (4-6) Potassium Chloride 20 meq 08/30/18 12:00 K-Dur PO 08/30/18 12:01 ONCE ONE Risperidone 2 mg 08/30/18 10:00 Risperdal PO DAILY KAYLYN Senna 8.6 mg 08/29/18 22:00 08/29/18 22:02 Senokot PO 8.6 mg Q12HR KAYLYN Administration Sodium Chloride 10 ml 08/29/18 22:00 08/29/18 22:02 Sodium Chloride Flush Syringe 10 Ml IV 10 ml BID KAYLYN Administration Sodium Chloride 10 ml 08/29/18 21:23 Sodium Chloride Flush Syringe 10 Ml IV PRN PRN LINE FLUSH Trazodone HCl 50 mg 08/30/18 22:00 Desyrel PO QHS KAYLYN
[2018-08-30] MEDS: SENOKOT PO SCH (11:57)
[2018-08-30 11:59] VITALS: BP 138/88
[2018-08-30 12:25] LABS: BUN/Creatinine Ratio 10; Blood Urea Nitrogen 6 mg/dL (7-17); Calcium 8.2 mg/dL (8.4-10.2); Hemolysis Index 2
--- NOTE | 2018-08-30 12:55 | Discharge Summary ---
Providers - Providers Date of Admission: 08/29/18 21:30 Date of discharge: 08/30/18 Attending physician: PAUL KEENE 08/30/18 10:54 Consult to Physician [CONS] Routine Comment: Consulting Provider: TAYLOR EUGENE Physician Instructions: Reason For Exam: recurrent DVT Hospitalization Condition: Fair Pertinent studies: Lower extremity venous Doppler Abdomen CTA VQ scan Chest x-ray Hospital course: Patient is a 43 year old female with PMHx of DVT, hyperlipidimia, HTN, DM type 2, schyzophrenia, obesity who presents to the ER with c/o right foot, and leg pain for 4 days. Pt reports a recent history of DVT (03/2018) in her leg with thrombectomy for which she was started on Eliquis. Unsure if the pt is complient to the medications, she admits to take all medications daily but she says to the ER DR that she took his the medication the first 30 days but couldn't afford to buy them anymore. Pt had a Doppler study in the ER which showed occlusion of right distal superficial femoral artery, right anterior tibial artery and right dorsalis pedis artery, pt was started in an heparin drip and admitted for further evaluation an treatment of DVT. CTA done early this morning shows recurrent thrombus in the distal aorta with occlusion of the origin of the right common iliac and some compromise of the origin on the left, new thrombus in the distal SFA on the right. Vascular surgeon was consulted and recommended to transfer the patient to the Nursery. Patient was then transfer to Nursery NPO with heparin drip for possible placement of a aortic endograft possibly Endologix. Discharge diagnosis; 1. 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 New thrombus in the distal SFA on the right. 2. Hyperlipidemia 3. Accelerated Hypertension 4. DM type 5. Schizophrenia 6. Obesity 7. Anxiety 8. Noncompliance Physical exam: General appearance: Present: no acute distress - EENT Eyes: Present: EOM intact ENT: hearing intact - Neck Neck: Present: supple, normal ROM - Respiratory Respiratory effort: normal Respiratory: bilateral: CTA - Cardiovascular Rhythm: regular Heart Sounds: Present: S1 & S2 - Extremities Extremities: no ischemia, No edema Peripheral Pulses: within normal limits - Abdominal General gastrointestinal: Present: non-tender, non-distended Female genitourinary: Present: deferred - Rectal Rectal Exam: deferred - Integumentary Integumentary: Present: warm, dry - Musculoskeletal Musculoskeletal: strength equal bilaterally - Psychiatric Psychiatric: cooperative Disposition: DC/TX-02 [facility] HOSP IP Time spent for discharge: 34 minutes Core Measure Documentation - Palliative Care Palliative Care/ Comfort Measures: Not Applicable - Core Measures Any of the following diagnoses?: none Exam - Constitutional Vitals: Temp Pulse Resp BP Pulse Ox 98.4 F 81 20 138/88 98 08/30/18 08:09 08/30/18 10:00 08/30/18 10:00 08/30/18 11:57 08/30/18 10:00 Plan Activity: other (bedrest) Diet: other (nothing by mouth) Additional Instructions: Please continue heparin drip on discharge [facility] - 6 Weeks KUSH BECKFORD MD [Staff Physician] - 6 Weeks
[2018-08-30] MEDS: HEPARIN/ 0.45% NACL-25,000 UNIT/500 ML 25,000 UNIT/500 ML BAG IV SCH (13:04)
--- NOTE | 2018-08-30 17:02 | XRay Report ---
PROCEDURE: XR CHEST 1V AP TECHNIQUE: Chest radiograph single view. HISTORY: PROTOCOL PRIOR TO LUNG SCAN COMPARISONS: None . FINDINGS: Heart: Normal. Mediastinum/Vessels: Normal. Lungs/Pleural space: Normal. Bony thorax: No acute osseous abnormality. Life support devices: None. IMPRESSION: No acute cardiopulmonary abnormality. This document is electronically signed by Tacho Spear MD., Aug 30 2018 05:00:34 PM ET
--- NOTE | 2018-08-30 20:07 | Nuclear Medicine Report ---
PROCEDURE: NM LUNG SCAN PERF/VENT TECHNIQUE: The nuclear medicine ventilation perfusion study was performed. The patient was given 13 m Ci of Xe 133 gas for the ventilation study and 4.8 mCi of technetium 99m MAA for the perfusion study. Images were acqu ired in the standard projections.? Correlation is made with chest radiograph performed on the same da te. HISTORY: eval for pe COMPARISONS: Correlation with chest x-ray from 08/30/2018 FINDINGS: There is normal distribution of the radiopharmaceutical from both the ventilation and perfusion studi es.? There are no defects. IMPRESSION: Normal VQ scan.? No evidence of PE. This document is electronically signed by Melonie Uribe MD., Aug 30 2018 08:05:06 PM ET
[2018-08-30] MEDS ORDERED: DESYREL PO SCH (22:00)
== END 2018-08-30 15:10 | disposition short-term general hospital (02) | DRG 300 ==
LOC: ED 13:45 → 4A 21:30
PROVIDERS: ADMIT Internal Medicine; ATTEND Internal Medicine
DX: I82.421 Acute embolism and thrombosis of right iliac vein (principal); Z68.41 Body mass index [BMI] 40.0-44.9, adult; I74.19 Embolism and thrombosis of other parts of aorta; I82.411 Acute embolism and thrombosis of right femoral vein; E66.9 Obesity, unspecified; E78.5 Hyperlipidemia, unspecified; I10 Essential (primary) hypertension; F20.9 Schizophrenia, unspecified; F41.9 Anxiety disorder, unspecified; I99.8 Other disorder of circulatory system; E11.51 Type 2 diabetes mellitus with diabetic peripheral angiopathy without gangrene; I25.10 Atherosclerotic heart disease of native coronary artery without angina pectoris; F17.200 Nicotine dependence, unspecified, uncomplicated; Z72.89 Other problems related to lifestyle; Z91.14 Patient's other noncompliance with medication regimen; Z79.899 Other long term (current) drug therapy; I25.2 Old myocardial infarction; Z95.5 Presence of coronary angioplasty implant and graft; Z79.82 Long term (current) use of aspirin
CPT/HCPCS: 36415; 71045; 75635; 78582; 80048; 80053; 82962; 85025; 85520; 85610; 85730; 87116; 93925; 96374; G0378; A9540; A9558; J1644; J2405; Q9967